=== PATIENT | male | born 1985 | race Caucasian/White ===

== ENCOUNTER 2021-09-01 14:40 | Emergency (ER) | payer OTHER ==
[~2021-09-01] VITALS: Ht 188 cm; Wt 85.0 kg
[2021-09-01] MEDS ORDERED: KETOROLAC 30 MG/ML VIAL. ONE (15:03)
[2021-09-01] MEDS ORDERED: LIDOCAINE (700MG/PATCH) PATCH. ONE (15:04)
--- NOTE | 2021-09-01 15:26 | PHYS DOC ---
General Adult EDM: Chief Complaint: BACK PAIN OR INJURY HPI: HPI: 36-year-old male ED with complaints of low back pain that started after patient did a box jump on 08/23. Patient states pain is located in his low back along midline and radiates down both of his legs. Was seen at the [facility] for this back in November 2020-this is when all his back pain symptoms started. Symptoms have been exacerbating since pain.Had an MRI of his back 06/2021 that showed L4- 5 disc bulge. Patient has been following with physical therapy and if this was unsuccessful was going to be referred to pain management and orthopedic surgery. Was seen on Wednesday with his primary care physician and prescribed baclofen and given a Toradol injection. Denies any history of trauma, history of IV drug use, history of cancer, history of sciatica, history of malignancy, history of immunocompromise state, neurologic complaints including saddle anesthesia, weakness or paresthesias, urinary retention, bowel or bladder incontinence, night pain, fever/chills/night sweats, unexplained weight loss, anticoagulants or coagulopathy, prolonged steroid use, older age, presence of contusions or abrasions. Review of Systems: Review of Systems: Constitutional: Denies fever or chills Eyes: Denies change in visual acuity HENT: Denies nasal congestion or sore throat Respiratory: Denies cough or shortness of breath Cardiovascular: Denies chest pain or edema GI: Denies abdominal pain, nausea, vomiting, bloody stools or diarrhea : Denies dysuria or hematuria Musculoskeletal: Denies joint pain, swelling anesthesia or incontinence Integument: Denies rash or diaphoresis Neurologic: Denies headache, focal weakness or sensory changes Endocrine: Denies polyuria or polydipsia Lymphatic: Denies swollen glands Psychiatric: Denies depression or anxiety Current Medications: Current Meds: Current Medications Medications (Trade) Dose Ordered Sig/Vahid Start Time Stop Time Status Last Admin Dose Admin Ketorolac Tromethamine (Toradol 30mg Vial) 30 mg STK-MED ONCE 09/01/21 15:03 09/01/21 15:04 DC Ketorolac Tromethamine (Toradol Im) 30 mg 1X ONCE 09/01/21 15:00 09/01/21 15:01 UNV Lidocaine (Lidoderm) 1 patch DAILY 09/02/21 15:30 UNV Miscellaneous (Lidoderm Patch Removal) 1 ea QHS 09/01/21 21:00 UNV Allergies: Allergies: Allergies Coded Allergies Type Severity Reaction Last Updated Verified Sulfa (Sulfonamide Antibiotics) Allergy Mild 09/01/21 Yes Physical Exam: PE: Constitutional: In pain on arrival, healthy , non-toxic appearance. HENT: Normocephalic, atraumatic, Eyes: EOMI, conjunctiva normal, no discharge. Neck: Normal range of motion, supple, Cardiovascular: S1/2 present, regular rhythm Lungs & Thorax: Speaking in full sentences, bilateral equal chest rise, no tachypnea or increased work of breathing Skin: Warm, dry, no erythema, no rash. [] Back: Midline L4-L5 pain, cannot reproduce tenderness-pain alleviated with leaning forward, steady gait, no flank pain Extremities: No tenderness, no cyanosis, no lower extremity edema Neurologic: Alert and oriented X 3, normal motor function, normal sensory function, no focal deficits noted. [] Psychologic: Affect normal, judgement normal, mood normal. [] EKG: EKG: [] Radiology/Procedures: Radiology/Procedures: IMAGING REPORT Signed PATIENT: LACIE FUENTES CACCOUNT: [id number] : 1985 LOCATION: ER AGE: 36 SEX: M EXAM STATUS: REG ER ORD. PHYSICIAN: DERRELL BLAKE DO REASON: low back pain PROCEDURE: CT LUMBAR SPINE WO CONTRAST EXAM: Lumbar spine CT without contrast. HISTORY: Lower back pain. TECHNIQUE: Computed tomographic images of the lumbar spine were obtained without contrast. Multiplanar reformatting was performed. *One or more of the following individualized dose reduction techniques were utilized for this examination: 1. Automated exposure control. 2. Adjustment of the mA and/or kV according to patient size. 3. Use of iterative reconstruction technique. COMPARISON: None. FINDINGS: There is minimal retrolisthesis of L4 on L5. There is slight disc space narrowing at this level. There is mild multilevel endplate remodeling. There are multiple endplate Schmorl's nodes. There are few small sclerotic lesions within the vertebral column and bony pelvis, likely due to bone islands. There is no fracture. The sacroiliac joints are intact. At L4-L5, there is a disc bulge and endplate remodeling. There is mild left foraminal stenosis. There is mild central canal stenosis no additional stenosis is seen. IMPRESSION: 1. Degenerative change primarily at L4-L5, as described above. 2. No acute osseous finding. Electronically signed by: Uma Rocha MD (09/01/2021 3:26 PM) [id number] DICTATED AND SIGNED BY: UMA ROCHA MD DATE: 09/01/21 1524 CC: SHAY BARNHART MD; [facility] ~MTH0 0 Heart Score: C/O Chest Pain: No Risk Factors: Risk Factors: DM, Current or recent (<one month) smoker, HTN, HLP, family history of CAD, obesity. Risk Scores: Score 0 - 3: 2.5% MACE over next 6 weeks - Discharge Home Score 4 - 6: 20.3% MACE over next 6 weeks - Admit for Clinical Observation Score 7 - 10: 72.7% MACE over next 6 weeks - Early Invasive Strategies Course & Med Decision Making: Course & Med Decision Making Pertinent Labs and Imaging studies reviewed. (See chart for details) Concern for atraumatic lumbar back pain with radiculopathy consistent with lumbar disc herniation. Symptoms significantly alleviated after analgesia. CT report consistent with known lumbar disc herniation. Report was given to patient to take to orthopedic surgery. Will prescribe a short dose of narcotic medications-patient understands he cannot drink, drive or operate heavy machinery with his medications nor can he mix with other sedatives. Will discharge home with strict ED return precautions were given for severe pain, fever, saddle anesthesia or incontinence. Encouraged urgent outpatient follow-up with PMD for routine care, pain management for analgesia and orthopedic surgery for definitive management of disc herniation. Life-threatening processes were considered but are low suspicion at this time, given history, physical exam and ED workup. Pt was educated on all prescription medications and adverse effects. All patient's questions were answered and pt was stable at time of discharge. Life/limb-threatening differential includes but is not limited to, aortic dissection/aneurysm, cauda equina syndrome, transverse myelitis, spinal cord/epidural compression syndromes, discitis, spinal stenosis, epidural abscess or hematoma, osteomyelitis, disc herniation, surgical abdomen, stable or unstable fracture, renal/ureteral colic, sepsis, meningitis, musculoskeletal injury, traumatic injury, intraabdominal/retroperitoneal or pelvic bleeding. I have spoken with the patient and/or caregivers. I explained the patient's condition, diagnoses and treatment plan based on the information available to me at this time. I have answered the patient and/or caregiver's questions and addressed any concerns. The patient and/or caregivers have a good understanding of patient's diagnosis, condition and treatment plan as can be expected at this point. Vital signs have been stable. Patient's condition is stable and appropriate for discharge from the emergency department. Patient will pursue further outpatient evaluation with primary care physician or other designated or consulting physician as outlined in the discharge instructions. The patient and/or caregivers are agreeable to this plan of care and follow-up instructions have been explained in detail. The patient and/or caregivers have received these instructions in written form and have expressed an understanding of the discharge instructions. The patient and/or caregivers are aware that any significant change of condition or worsening of symptoms should prompt immediate return to this or the closest emergency department or call to 911. Vijaya Disclaimer: Vijaya Disclaimer: This electronic medical record was generated, in whole or in part, using a voice recognition dictation system. Departure Departure: Impression: Primary Impression: Back pain at L4-L5 level Additional Impression: Lumbar disc herniation Disposition: HOME / SELF CARE / HOMELESS Condition: STABLE Referrals: SHAY BARNHART MD (PCP) Follow-up with your primary physician in the next few days or Follow-up with your primary care physician in 24 to 48 hours OR FOLLOW UP WITH FAMILY MEDICINE: [address] [facility], [facility] [address] [facility] Patient Instructions: Back Pain, Adult, Herniated Disk Additional Instructions: FOLLOW UP WITH PAIN MANAGEMENT: FOR DEFINITIVE MANAGEMENT of pain [facility] [address] [facility], [facility] [address] [place] [address] FOLLOW UP WITH ORTHOPEDICS: FOR DEFINITIVE MANAGEMENT of lumbar disc herniation Orthopaedic Surgery [address] [facility], [facility] [address] [place] [address] EMERGENCY DEPARTMENT GENERAL DISCHARGE INSTRUCTIONS Thank you for coming to [facility] (ED) today and trusting us with you care. We trust that you had a positivie experience in our Emergency Department. If you wish to speak to the department management, you may call the director at [phone]. YOUR FOLLOW UP INSTRUCTIONS ARE FOLLOWS: 1. Do you have a private Doctor? If you do not have a private doctor, please ask for a resource list of physicians or clinics that may be able to assist you with follow up care. 2. The Emergency Physician has interpreted your x-rays. The X-Ray specialist will also review them. If there is a change in the findings, you will be notified in 48 hours when at all possible. 3. A lab test or culture has been done, your results will be reviewed and you will be notified if you need a change in treatment. ADDITIONAL INSTRUCTIONS AND INFORMATION: 1. Your care today has been supervised by a physician who is specially trained in emergency care. Many problems require more than one evaluation for a complete diagnosis and treatment. We recommend that you schedule your follow up appointment as recommended to ensure complete treatment of you illness or injury. If you are unable to obtain follow up care and continue to have a problem, or if your condition worsens, we recommend that you return to the ED. 2. We are not able to safely determine your condition over the phone nor are we able to give sound medical advice over the phone. For these safety reasons, if you call for medical advice we will ask you to come to the ED for further evaluation. 3. If you have any questions regarding these discharge instructions please call the ED at [phone]. SAFETY INFORMATION: In the interest of safety, wellness, and injury prevention; we encourage you to wear your sealbelt, if you smoke; quite smoking, and we encourage family to use a protective helmet for bicycling and other sporting events that present an increased risk for head injury. IF YOUR SYMPTOMS WORSEN OR NEW SYMPTOMS DEVELOP, OR YOU HAVE CONCERNS ABOUT YOUR CONDITION; OR IF YOUR CONDITION WORSENS WHILE YOU ARE WAITING FOR YOUR FOLLOW UP APPOINTMENT; EITHER CONTACT YOUR PRIMARY CARE DOCTOR, THE PHYSICIAN WHOSE NAME AND NUMBER YOU WERE GIVEN, OR RETURN TO THE ED IMMEDIATELY. Scripts Hydrocodone Bit/Acetaminophen (HYDROCODONE-APAP 5-325 ) 1 Each Tablet 1 TAB PO PRN Q6HRS PRN for PAIN for 4 Days, #16 TAB 0 Refills Caution: this medication can make you drowsy. Do not drive or operate heavy machinery when using this medication. Prov: DERRELL BLAKE DO 09/01/21 Lidocaine (Lidocaine PATCH ) 1 Each Adh..patch 1 EACH TP DAILY for FOR LOCAL PAIN for 5 Days, #5 PATCH REMOVE AFTER 12 HOURS Prov: DERRELL BLAKE DO 09/01/21 DERRELL BLAKE DO Sep 01, 2021 15:26
--- NOTE | 2021-09-01 15:29 | RAD ---
EXAM: Lumbar spine CT without contrast. HISTORY: Lower back pain. TECHNIQUE: Computed tomographic images of the lumbar spine were obtained without contrast. Multiplana r reformatting was performed. *One or more of the following individualized dose reduction techniques were utilized for this examina tion: 1. Automated exposure control. 2. Adjustment of the mA and/or kV according to patient size. 3. Use of iterative reconstruction technique. COMPARISON: None. FINDINGS: There is minimal retrolisthesis of L4 on L5. There is slight disc space narrowing at this l evel. There is mild multilevel endplate remodeling. There are multiple endplate Schmorl's nodes. Ther e are few small sclerotic lesions within the vertebral column and bony pelvis, likely due to bone isl ands. There is no fracture. The sacroiliac joints are intact. At L4-L5, there is a disc bulge and endplate remodeling. There is mild left foraminal stenosis. There is mild central canal stenosis no additional stenosis is seen. IMPRESSION: 1. Degenerative change primarily at L4-L5, as described above. 2. No acute osseous finding. Electronically signed by: Uma Mcdonnell MD (09/01/2021 3:26 PM) [id number]
[2021-09-01] MEDS ORDERED: LIDOCAINE (700MG/PATCH) PATCH. TD SCH (15:30)
[2021-09-01] MEDS ORDERED: KETOROLAC 30 MG/ML VIAL. IM ONE (15:30)
[2021-09-01] MEDS ORDERED: HYDROcodone/APAP 7.5/325MG 1 TAB TABLET PO ONE (15:45)
[2021-09-01 16:50] VITALS: BP 130/75
[2021-09-01] MEDS ORDERED: HYDR-2155 PO (17:16)
[2021-09-01] MEDS ORDERED: LIDO700A21 TP (17:16)
[2021-09-01] MEDS ORDERED: PATCH REMOVAL. MC SCH ×2 (21:00)
[2021-09-02] MEDS ORDERED: LIDOCAINE (700MG/PATCH) PATCH. TD SCH (09:00)
== END 2021-09-01 17:38 | disposition home or self-care (01) ==
LOC: ER 14:40
DX: M51.26 Other intervertebral disc displacement, lumbar region (principal); Z88.2 Allergy status to sulfonamides
CPT/HCPCS: 72131; 96372; 99284; J1885